=== PATIENT | female | born 1985 | race Caucasian/White ===

== ENCOUNTER → 2022-07-31 08:51 | Outpatient (CLI) | payer OTHER, SELFPAY ==
--- NOTE | 2022-07-31 08:53 | DI.RAD.S_ITS ---
PROCEDURE: XR THORACIC SPINE 3V INDICATIONS: RIB PAIN TECHNIQUE: 3 views of the thoracic spine were acquired. COMPARISON: None. FINDINGS: Bones: Very mild rightward curvature of thoracolumbar spine with apex at T11 level is seen. No fractures or dislocations. No suspicious bony lesions. 12 pairs of ribs are noted, and appear intact where visualized. Soft tissues: No paravertebral stripe thickening. IMPRESSION: Very mild rightward curvature of thoracolumbar spine with apex at T11 level. No compression fracture or spondylolisthesis. Dictated by: Huang Short M.D. on 07/31/2022 at 9:29 Approved by: Huang Short M.D. on 07/31/2022 at 9:29
--- NOTE | 2022-07-31 08:53 | DI.RAD.S_ITS ---
PROCEDURE: XR LUMBAR SPINE MIN 4V INDICATIONS: BACK PAIN TECHNIQUE: 5 views of the lumbar spine were acquired, including bilateral oblique views. COMPARISON: None. FINDINGS: Bones: 5 nonrib-bearing vertebrae are present. There is normal bony alignment. No vertebral body compression fractures. Mild degenerative endplate changes are seen at L4-5 and L5-S1 levels. No suspicious bony lesions. Soft tissues: Overlying bowel gas pattern is normal. No suspicious soft tissue calcifications. Oblique images: No pars defects. IMPRESSION: Mild degenerative disc disease in lower lumbar spine. No acute compression fracture or spondylolisthesis. No gross pars defects or significant bony foraminal stenosis. Dictated by: Huang Short M.D. on 07/31/2022 at 9:26 Approved by: Huang Short M.D. on 07/31/2022 at 9:29
== END ==
PROVIDERS: PCP Family Medicine; Referring Provider Physical Medicine & Rehabilitation; Visit Provider Physical Medicine & Rehabilitation
DX: M51.36 Other intervertebral disc degeneration, lumbar region (principal); M51.37 Other intervertebral disc degeneration, lumbosacral region; M47.816 Spondylosis without myelopathy or radiculopathy, lumbar region; M51.27 Other intervertebral disc displacement, lumbosacral region; R07.81 Pleurodynia
CPT/HCPCS: 72072; 72110

== ENCOUNTER 2022-09-03 10:16 | Outpatient (CLI) | payer OTHER, SELFPAY ==
[2022-09-03] VITALS (9 sets, daily range): BP systolic 116–137; BP diastolic 57–81; PULSE 77–101; RESP 12–19; TEMP 36.4; O2SAT 98–100
--- NOTE | 2022-09-03 10:17 | DI.RAD.S_ITS ---
PROCEDURE: PAIN L/S FACET INJ/BLK 1ST TRELL COMPARISON: [facility], CR, XR LUMBAR SPINE MIN 4V, 07/31/2022, 8:51. INDICATIONS: SPONDYLOSIS FINDINGS: Fluoroscopic spot filming was performed to verify placement of spinal needles on both sides at the L4, L5, and S1 levels, as labeled on the films. Appropriate location of the needle tips was confirmed by injection of iodinated contrast. IMPRESSION: Intraprocedural examination demonstrating appropriate positions of the needles. Dictated by: Julio C Rivas M.D. on 09/03/2022 at 12:08 Approved by: Julio C Rivas M.D. on 09/03/2022 at 12:08
[2022-09-03] MEDS: MIDAZOLAM 2 MG/2 ML VIAL IV (11:10)
[2022-09-03] MEDS: BUPIVACAINE 0.5% (PF) 10 ML VIAL 5 ML INJ (11:17)
[2022-09-03] MEDS: LIDOCAINE 1% 20 ML 5 ML INJ (11:17)
[2022-09-03] MEDS: IOPAMIDOL 15 ML VIAL 3 ML INJ (11:18)
--- NOTE | 2022-09-03 11:29 | P.PCN_ITS ---
Date/Time/Diagnoses Date of procedure: 09/03/22 Time of procedure: 11:29 Pre-procedure diagnosis: 1. FACET ARTHROPATHY Post-procedure diagnosis: same Procedure Notes Procedure: 1. BILATERAL- L4, L5 and S1 DIAGNOSTIC MB BLOCKS with LA Anesthetic Indications: Jenae is referred by Dr. Dodd for treatment of Bilateral Axial LBP. Physician: Cyril Choi Total Fluoroscopy time (seconds): 12 Total sedation minutes: 16 Complications: none Procedure in detail & Post-procedure care: DESCRIPTION OF PROCEDURE Fluoroscopically guided, contrast-controlled bilateral L4, L5 and S1 medial branch blocks with 0.5cc of 0.5% Marcaine. Following review of allergy and review of potential side effects and complications, including, but not necessarily limited to, infection, allergic reaction, local tissue breakdown, nerve injury, paralysis, stroke and possible , the patient indicated that the patient understood and agreed to proceed. An informed consent document was signed by the patient, witnessed by a nurse, and placed in the patient's chart. After review of previous anaesthesic history and IV conscious sedation the patient was deemed safe to proceed with today's procedure with IV conscious sedation as ASA class II designation. Safety time-out was performed to confirm patient ID, procedure to be performed and site of procedure. IV sedation was accomplished with a combination of 2mg of Versed was administered by the RN after DO order, titrated to patient comfort during the course of the procedure while the patient remained responsive to all verbal commands In the prone position, following sterile prep and drape of the lumbar region, the right L4, L5 and S1 anatomical location of the medial branch of the dorsal ramus was identified fluoroscopically. Subsequently an anesthetic skin wheal using 1% lidocaine solution was initiated at each of the anatomical spots. Subsequently then a 22-gauge 3.5-inch spinal needle was atraumatically introduced and advanced under fluoroscopic guidance at each of the corresponding sites at the right L4, L5 and S1 MB. After negative aspiration, 0.2cc of Isovue 200 was injected, confirming placement without vascular or intrathecal uptake. Subsequently then 0.5cc of 0.5% Marcaine solution was injected at each of the corresponding sites at the right L4, L5 and S1 medial branch locations. The identical procedure was replicated on the left. The patient tolerated the procedure well without signs or symptoms of complications prior to transfer to the recovery area continued monitoring without incident. Post-procedure, the patient was monitored initiating provocative activities to measure the amount of relief from block of the facetogenic pain. The patient reported a VAS of 7 prior to the procedure and a post-procedure VAS of 1. It has been a pleasure to assist in the diagnostic and therapeutic care of your patient. POST OP INSTRUCTIONS The patient was provided with a Pain Log to complete over the next several hours and subsequent days prior to the patient's follow up with the ordering physician. If the patient has sales and service specialist relief to the solution applied, then they may be a candidate for medial branch rhizotomy. The patient is aware, was provided, once again, with a Pain Log and will follow up with the referring physician for review and clinical correlation
== END 2022-09-03 11:48 | disposition home or self-care (01) ==
PROVIDERS: PCP Family Medicine; Referring Provider Physical Medicine & Rehabilitation; Visit Provider Physical Medicine & Rehabilitation
DX: M47.816 Spondylosis without myelopathy or radiculopathy, lumbar region (principal); M47.817 Spondylosis without myelopathy or radiculopathy, lumbosacral region
CPT/HCPCS: 64493; 64494; 99152; J2250

== ENCOUNTER → 2022-10-25 10:39 | Outpatient (CLI) | payer OTHER, SELFPAY ==
--- NOTE | 2022-10-25 10:40 | DI.MRI.S_ITS ---
PROCEDURE: MR THORACIC SPINE WO CON INDICATIONS: scoliosis with radic TECHNIQUE: Noncontrast sagittal T1 spine echo and T2 fast spin echo, sagittal STIR, and T2 fast spin echo through the thoracic spine. COMPARISON: None. FINDINGS: Image quality: Excellent. Alignment and Curvature: There is normal bony alignment. Bone Marrow: Marrow is of normal overall signal. No acute vertebral body compression fractures. Spinal Cord: Visualized spinal cord is normal in size and signal. Paraspinous Soft Tissues: No paravertebral masses. Miscellaneous: On axial images, central canal and foramina appear widely patent at all scanned levels. IMPRESSION: No significant degenerative changes of the thoracic spine. No central or neural foraminal stenosis. Dictated by: Miky Smith M.D. on 10/26/2022 at 8:16 Approved by: Miky Smith M.D. on 10/26/2022 at 8:19
== END ==
PROVIDERS: PCP Family Medicine; Referring Provider Physical Medicine & Rehabilitation; Visit Provider Physical Medicine & Rehabilitation
DX: M47.24 Other spondylosis with radiculopathy, thoracic region (principal); M41.24 Other idiopathic scoliosis, thoracic region
CPT/HCPCS: 72146

== ENCOUNTER 2022-11-17 09:44 | Outpatient (CLI) | payer OTHER, SELFPAY ==
[2022-11-17] VITALS (9 sets, daily range): BP systolic 111–134; BP diastolic 54–77; PULSE 94–115; RESP 12–20; TEMP 36.4; O2SAT 99–100
--- NOTE | 2022-11-17 09:45 | DI.RAD.S_ITS ---
PROCEDURE: PAIN L INTERLAMINAR/CAUDAL INJ INDICATIONS: SPONDYLOSIS COMPARISON: [facility], XA, PAIN L/S FACET INJ/BLK 1ST TRELL, 09/03/2022, 11:15. FINDINGS: Fluoroscopic spot filming was performed to verify placement of a spinal needle at the L5-S1 level, as labeled on the films. Appropriate location of the needle tip was confirmed by injection of iodinated contrast. IMPRESSION: No significant intraprocedural abnormality. Dictated by: Julio C Rivas M.D. on 11/17/2022 at 14:29 Approved by: Julio C Rivas M.D. on 11/17/2022 at 14:30
[2022-11-17] MEDS: MIDAZOLAM 2 MG/2 ML VIAL IV (10:43)
[2022-11-17] MEDS: DEXAMETHASONE 10 MG/ML VIAL INJ (10:49)
[2022-11-17] MEDS: BETAMETHASONE 30 MG/5 ML MDV 6 MG INJ (10:49)
[2022-11-17] MEDS: IOPAMIDOL 15 ML VIAL 3 ML INJ (10:49)
[2022-11-17] MEDS: BUPIVACAINE 0.25% (PF) VIAL 2 ML INJ (10:50)
--- NOTE | 2022-11-17 10:57 | P.PCN_ITS ---
Date/Time/Diagnoses Date of procedure: 11/17/22 Time of procedure: 10:57 Pre-procedure diagnosis: 1. HNP WITH RADICULAR FEATURES, 2. MULTILEVEL CENTRAL STENOSIS, Post-procedure diagnosis: same Procedure Notes Procedure: 1. FLUOROSCOPICALLY GUIDED CONTRAST CONTROLLED INTERLAMINAR EPIDURAL STEROID INJECTION - L5/S1 Indications: Jenae is referred by Dr. Haines for treatment of Bilateral Foraminal Stenosis L>R LE symptoms. Physician: Cyril Choi Total Fluoroscopy time (seconds): 9 Total sedation minutes: 11 Complications: none Procedure in detail & Post-procedure care: FINDINGS Multilevel Central Spinal Stenosis with Nerve Root Compression DESCRIPTION OF PROCEDURE Fluoroscopically guided, contrast-controlled L5/S1 translaminar epidural steroid injection. Following review of allergy and review of potential side effects and complications, including, but not necessarily limited to, infection, allergic reaction, local tissue breakdown, temporary as well as permanent nerve injury, paralysis, stroke and possible , the patient indicated that the patient understood and agreed to proceed. An informed consent document was signed by the patient, witnessed by a nurse, and placed in the patient's chart. Additionally, other treatment options including modalities, medications, and physical therapy were reviewed with the patient. After review of previous anaesthesic history and IV conscious sedation the patient was deemed safe to proceed with today?s procedure with IV conscious sedation as ASA class II designation. Safety time-out was performed to confirm patient ID, procedure to be performed and site of procedure. IV sedation was accomplished with a combination of 2mg of Versed administered by the RN after DO order, titrated to patient comfort during the course of the procedure while the patient remained responsive to all verbal commands. In the prone position, following sterile prep and drape of the lumbar region, the L5/S1 translaminar space was identified fluoroscopically. The skin was anesthetized via a 25-gauge, 1.5-inch needle with 1% lidocaine solution. At this point, a 22-gauge short bevel spinal needle was atraumatically introduced and advanced under fluoroscopic guidance into the region of the L5/S1 translaminar space. Depth was confirmed on lateral view. Radiological data, including multiple fluoroscopic views of the lumbar spine, reveal a spinal needle at the L5/S1 translaminar space. Lateral views then show placement of the needle in the epidural space. Subsequent views show contrast material flowing superiorly and inferiorly in the epidural space. No vascular or intrathecal uptake is observed. At this point, using loss of resistance technique with saline and air, the epidural space was entered. This was confirmed following negative aspiration with injection of approximately 1.5cc of Isovue 200, showing excellent epidural flow without vascular or intrathecal uptake. At this point, 1 cc of 1% lidocai ne solution combined with 2cc or 10mg of dexamethasone and 6mg of betamethasone was injected without incident. The patent tolerated the procedure without signs of symptoms of complications prior to transfer to the recovery area for further monitoring. The patient was then transferred to the recovery area where they were observed for an appropriate period of time after the injection. The patient reported a VAS score of 6 prior to the procedure and a post-procedure VAS of 1. POST OP INSTRUCTIONS The patient was provided a Pain Log to continue to record their response to the target-specific procedure prior to follow-up visit with their referring physician. Additionally, specific post-injection care instructions and a contact number to our office were provided if concerns arise regarding possible complications associated with the procedure are suspected.
== END 2022-11-17 11:20 | disposition home or self-care (01) ==
PROVIDERS: PCP Family Medicine; Referring Provider Physical Medicine & Rehabilitation; Visit Provider Physical Medicine & Rehabilitation
DX: M51.17 Intervertebral disc disorders with radiculopathy, lumbosacral region (principal); M48.07 Spinal stenosis, lumbosacral region
CPT/HCPCS: 62323; 99152; J0702; J1100; J2250; J3490